=== PATIENT | female | born 1965 | race Hispanic/Latino ===

== ENCOUNTER 2016-11-16 21:11 | Emergency (ER) | payer SELFPAY ==
[2016-11-16 21:22] VITALS: BMI 20.6
[2016-11-16 21:25] VITALS: BP 134/78; PULSE 72; RESP 18; TEMP 97.9; O2SAT 98
[2016-11-16] MEDS ORDERED: TDAP Vaccine 0.5 mL Syr IM ONE (21:38)
[2016-11-16] MEDS ORDERED: Rabies Immune Globulin 150 INTLU/ML VIAL IM ONE (21:38)
[2016-11-16] MEDS ORDERED: Rabies Vaccine 2.5 U VIAL IM ONE (21:38)
--- NOTE | 2016-11-16 21:42 | ED PDOC ---
Arrival/HPI - General Historian: Patient <Frank Gregory - Last Filed: 11/16/16 22:29> <Rico Gerard - Last Filed: 11/16/16 22:54> - General Chief Complaint: Bite Time Seen by Provider: 11/16/16 21:29 - History of Present Illness Narrative History of Present Illness (Text): 11/16/16 21:39 51 y/o female, no significant pmh, nkda, last tetanus doesn't remember, never been immunized for the rabies, c/o cat bite wound by an unknown cat about 3 days ago. Pt. was rescuing a stray cat, accidentally bite to the rt. hand region, wound healing well and dry, no fever or chills, no difficulty moving the rt. hand or 1st digit thumb, no fever or chills, no palpitation, no numbness or tingling, no other medical or psychological complaints. (Frank Gregory ) Past Medical History - Provider Review Nursing Documentation Reviewed: Yes - Infectious Disease Hx of Infectious Diseases: None - Psychiatric Hx Substance Use: No - Anesthesia Hx Anesthesia: No <Frank Gregory - Last Filed: 11/16/16 22:29> Family/Social History - Physician Review Nursing Documentation Reviewed: Yes Family/Social History: Unknown Family HX Smoking Status: Never Smoked Hx Alcohol Use: No Hx Substance Use: No <Frank Gregory - Last Filed: 11/16/16 22:29> Allergies/Home Meds <Frank Gregory - Last Filed: 11/16/16 22:29> <Rico Gerard - Last Filed: 11/16/16 22:54> Allergies/Adverse Reactions: Allergies No Known Allergies Allergy (Verified 11/16/16 21:22) Review of Systems - Review of Systems Constitutional: absent: Fatigue, Fevers Respiratory: absent: SOB Cardiovascular: absent: Chest Pain Gastrointestinal: absent: Abdominal Pain, Diarrhea, Nausea, Vomiting Skin: Other (bite wound). absent: Rash, Pruritis, Skin Lesions, Laceration Neurological: absent: Headache <Frank Gregory - Last Filed: 11/16/16 22:29> Physical Exam Vital Signs Reviewed: Yes Temperature: Afebrile Blood Pressure: Normal Pulse: Regular Respiratory Rate: Normal Appearance: Positive for: Well-Appearing, Non-Toxic, Comfortable Pain Distress: Mild Mental Status: Positive for: Alert and Oriented X 3 - Systems Exam Head: Present: Atraumatic, Normocephalic Respiratory/Chest: Present: Clear to Auscultation, Good Air Exchange. No: Respiratory Distress, Accessory Muscle Use Cardiovascular: Present: Normal S1, S2. No: Murmurs Upper Extremity: Present: Other (Rt. hand: visible thenar and dorsum region visible approx. less than 0.1mm healing non-infected bite wound noted on the 1st metacarpal region, no cellulitis or streaking, no ulcers, FROM without limitation, sensation intact, motor 5/5, +radial pulse, capillary refill< 2 seconds, neurovscular intact. ) Psychiatric: Present: Alert, Oriented x 3, Normal Insight, Normal Concentration <Frank Gregory - Last Filed: 11/16/16 22:29> Medical Decision Making <Frank Gregory - Last Filed: 11/16/16 22:29> <Rico Gerard - Last Filed: 11/16/16 22:54> ED Course and Treatment: 11/16/16 21:42 -tdap/rabies vaccination/rabies immunoglobulin -wound is already healing. -Discharge home with augmentin, take tylenol or motrin for pain, clean with soap and water daily, please continue the routine rabies vaccination which will be day 3, 7 and 14. Follow up with your own pmd and hand specialist within 2 days, return to the ER for any new or worsening signs or symptoms. (Frank Gregory) - Medication Orders Current Medication Orders: Discontinued Medications Rabies Immune Globulin (Imogam) 1,160 intlu IM .ONCE ONE Stop: 11/16/16 21:39 Rabies Vaccine Human Diploid Cell (Imovax Rabies) 2.5 u IM .ONCE ONE Stop: 11/16/16 21:39 Tetanus/Reduced Diphtheria/Acell Pertussis (Boostrix Vaccine Inj) 0.5 ml IM .ONCE ONE Stop: 11/16/16 21:39 - PA / TARIFF EXPERT / Resident Statement PADMINI has reviewed & agrees with the documentation as recorded. <Frank Gregory - Last Filed: 11/16/16 22:29> - PA / TARIFF EXPERT / Resident Statement PADMINI has reviewed & agrees with the documentation as recorded. <Rico Gerard - Last Filed: 11/16/16 22:54> Disposition/Present on Arrival - Present on Arrival Any Indicators Present on Arrival: No History of DVT/PE: No History of Uncontrolled Diabetes: No Urinary Catheter: No History of Decub. Ulcer: No History Surgical Site Infection Following: None - Disposition Have Diagnosis and Disposition been Completed?: Yes Disposition Time: 21:44 Patient Plan: Discharge <Frank Gregory - Last Filed: 11/16/16 22:29> <Rico Gerard - Last Filed: 11/16/16 22:54> - Disposition Diagnosis: Cat bite, Contact with and (suspected) exposure to rabies Disposition: HOME/ ROUTINE Patient Problems: Current Active Problems Problem Status Onset Cat bite Acute Contact with and (suspected) exposure to rabies Acute Condition: GOOD Additional Instructions: -Discharge home with augmentin, take tylenol or motrin for pain, clean with soap and water daily, please continue the routine rabies vaccination which will be day 3, 7 and 14. Follow up with your own pmd and hand specialist within 2 days, return to the ER for any new or worsening signs or symptoms. Prescriptions: Amoxicillin/Clavulanate [Augmentin 875 MG-125 MG] 1 tab PO BID #16 tab Referrals: Digna Rubio MD [Non-Staff] - Follow up with primary Forms: WORK NOTE
== END 2016-11-16 23:15 | disposition home or self-care (01) ==
LOC: ED 21:11
DX: S61.451A Open bite of right hand, initial encounter (principal); W55.01XA Bitten by cat, initial encounter; Z23 Encounter for immunization